=== PATIENT | male | born 1990 | race Caucasian/White ===

== ENCOUNTER → 2019-02-25 | Emergency (ER) | payer OTHER ==
[~2019-02-25] VITALS: Ht 167.6 cm; Wt 90.7 kg
[~2019-02-25] MED LIST: GILTUSS TR TAB1 EACH PO; ORASEP SPRAY30 ML MM; OSEL75CA PO; TOBRADEX EYE DR10 ML OP; TUSSI-PRES LIQ118 ML PO; ZITHROMAX500 MG PO
== END | disposition home or self-care (01) ==
LOC: ER 17:17
DX: J31.2 Chronic pharyngitis (principal); J32.8 Other chronic sinusitis